=== PATIENT | male | born 1995 | race Caucasian/White ===

== ENCOUNTER 2022-01-08 01:43 | Emergency (ER) | payer OTHER, BC ==
[2022-01-08] VITALS (10 sets, daily range): BP systolic 100–142; BP diastolic 60–119
[~2022-01-08] VITALS: Ht 190.5 cm; Wt 113.6 kg
[~2022-01-08 01:43] MED LIST: BENADRYL 50MG C50 MG OR; BENADRYL 50MG C50 MG PO; MEDDOSEPAK PO; TAGAMET300 MG OR; ULTRAM50 MG OR
[2022-01-08 02:10] LABS: HEMATOCRIT 45.9 % (39.0-50.0); HEMOGLOBIN 15.4 g/dl (14.0-18.0); IMMATURE GRANULOCYTES 0.7 % (0.0-5.0); MEAN CELL VOLUME 94.8 fL CALC (80.0-100.0); MEAN CORPUSCULAR HGB 31.8 pG CALC (26.0-32.0); MEAN CORPUSCULAR HGB CONC 33.6 g/dL CAL (32.0-36.0); NEUT# 3.02 thou/uL (1.82-7.42); RED BLOOD COUNT 4.84 mill/uL (4.70-6.10); RED CELL DISTRI WIDTH 11.9 % (11.5-15.5)
[2022-01-08 02:23] LABS: ALKALINE PHOSPHATASE 45 u/l (38-126); ANION GAP 17 (6-22 (CALC)); BILIRUBIN, TOTAL 0.2 mg/dL (0.0-1.4); BUN 14 mg/dL (9-20); BUN/CREATININE RATIO 12 (12-20 (CALC)); CARBON DIOXIDE 26 mmol/l (22-30); CHLORIDE 107 mmol/l (95-108); CREATININE 1.2 mg/dL (0.7-1.3); ETHYL ALCOHOL 251 mg/dl (0-30); GFR > 60 ML/MIN (>=60 (CALC)); GFR FOR AFR.AMER. > 60 ML/MIN (>=60 (CALC)); SGOT/AST 26 u/l (17-59); SODIUM 146 mmol/l (137-146)
[2022-01-08 05:33] LABS: URINE BILIRUBIN - DIPSTICK NEGATIVE (NEGATIVE); URINE BLOOD DIPSTICK NEGATIVE (NEGATIVE); URINE CLARITY CLEAR; URINE COLOR YELLOW; URINE GLUCOSE - DIPSTICK NEGATIVE (NEGATIVE); URINE KETONE TRACE mg/dL (NEGATIVE); URINE LEUK ESTERASE NEGATIVE (Negative); URINE NITRITE - DIPSTICK NEGATIVE (Negative); URINE PH 5.5 (4.5-8.0); URINE PROTEIN - DIPSTICK NEGATIVE (NEG-TRACE); URINE UROBILINOGEN - DIPSTICK 0.2 E.U./dL (0.2)
[2022-01-08] MEDS ORDERED: VOLTAREN75 MG PO (05:58)
== END 2022-01-08 06:18 | disposition home or self-care (01) | DRG 605 ==
LOC: ED 01:43
PROVIDERS: Family Medicine
DX: S00.83XA Contusion of other part of head, initial encounter (principal); S50.11XA Contusion of right forearm, initial encounter; S20.211A Contusion of right front wall of thorax, initial encounter; V47.5XXA Car driver injured in collision with fixed or stationary object in traffic accident, initial encounter; F10.129 Alcohol abuse with intoxication, unspecified

== ENCOUNTER 2024-05-17 12:44 | Emergency (ER) | payer BC ==
[~2024-05-17] VITALS: Ht 190.5 cm; Wt 120.4 kg
[2024-05-17] VITALS (10 sets, daily range): BP systolic 106–135; BP diastolic 67–92
[~2024-05-17 12:44] MED LIST changes: +NAPROXEN375 MG PO; +VOLTAREN75 MG PO
[2024-05-17] MEDS ORDERED: LEVOCETIRIZINE D5 MG PO (14:35)
[2024-05-17] MEDS ORDERED: VIBRAMYCIN100 M2 PO (14:35)
[2024-05-17] MEDS ORDERED: MEDDOSEPAK PO (14:35)
[2024-05-17] MEDS ORDERED: ROBITUSSIN AC10 ML PO (14:37)
[2024-05-17] MEDS ORDERED: guaiFENesin-CODEINE 200-20 MG/10 ML UDC PO ONE (14:40)
== END 2024-05-17 14:56 | disposition home or self-care (01) | DRG 203 ==
LOC: ED 12:44
DX: J40 Bronchitis, not specified as acute or chronic (principal); J32.9 Chronic sinusitis, unspecified; Z20.822 Contact with and (suspected) exposure to COVID-19